=== PATIENT | male | born 1985 | race Caucasian/White ===

== ENCOUNTER → 2024-04-21 | Outpatient (CLI) | payer BC ==
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
== END | disposition home or self-care (01) ==
LOC: RADMRIMAIN 08:02
PROVIDERS: ATTEND Neurological Surgery
DX: S02.91XD Unspecified fracture of skull, subsequent encounter for fracture with routine healing (principal)
CPT/HCPCS: 70551